=== PATIENT | male | born 1950 | race African-American/Black ===

== ENCOUNTER → 2020-03-29 | Outpatient (CLI) | payer OTHER ==
[~2020-03-29] VITALS: Ht 152.4 cm; Wt 88.0 kg
[~2020-03-29] MED LIST: ALEVE220 M1 PO; ASPIRIN EC81 M1 PO; COSOPT PF EYE1 EACH EA. EYE; CRESTOR10 MG PO; DILTIAZEM 24HR240 M1 PO; DILTIAZEM 24HR240 MG PO; GLIMEPIRIDE1 MG PO; GLUCOPHAGE500 MG PO; HYDROCORTISONE15 G3; KETOCONAZOLE 2%30 GM; LATANOPROST 0.7.5 ML EA. EYE; LEVO-T150 MCG PO; LEVOTHROID175 MCG PO; LISINOPRIL40 MG PO; METFORMIN HCL500 MG PO; OMEGA 3-6-9 CO1 EACH PO; PROAIR HFA8.5 GM INH; SUPER THERAVIT1 EACH PO; TYLENOL EX-STR500 M2 PO; WELCHOL 625 MG625 MG PO; ZESTRIL40 MG PO
[2020-03-29 09:18] VITALS: BP 160/85
--- NOTE | 2020-03-29 09:55 | NUR ---
Pain Clinic Assessment: 1. History of Osteoarthritis: pt denies History of Rheumatoid Arthritis: pt denies 2. Height: 5 ft. 10 in. 152.4 cm. Weight: 194.0 lb. oz. 87.998 kg. Patient's BMI: 37.9 3. Vital Signs: BP: 160/85 Pulse: 70 Resp: 16 Temp: 02 Sat: 100 ECG Mon: 4. Pain Intensity: 8 5. Fall Risk: Dizziness: N Needs help standing or walking: N Fallen in the last 3 months: N Fall risk comments: 6. Patient on Blood Thinner: n 7. History of Hypertension: Y 8. Opioid Therapy greater than 6 weeks: N Opiate Contract Signed: 9. Risk Assessment Tool Provided: 3-low 10. Functional Assessment Tool: 11. Recreational Drug Use: Never Drug Type: Tobacco Use: Former Smoker Tobacco Type: Amount or Packs/day: How Many Years: Alcohol Use: No Frequency: Quant:
--- NOTE | 2020-03-30 11:24 | HPC ---
[facility] [address] [address] PAIN MANAGEMENT CONSULTATION Name: KIMBERLY HOLM Room #: REG Gaston Cheek.#: [id number] Admission: 03/29/20 Attend Phys: Med Gifford DO Discharge: Date of : 48 Report #: [id number] CC: Med Erazo MD DATE OF SERVICE: 03/29/2020 REFERRING PHYSICIAN: Beatris Erazo MD CHIEF COMPLAINT: Low back pain, left lower extremity pain with paresthesias. HISTORY OF PRESENT ILLNESS: As you know, the patient is a pleasant 69-year-old male who reports longstanding history of low back pain and left lower extremity pain with paresthesias. He has in the past undergone epidural injections under fluoroscopic guidance for which he reported good efficacy. He states the first epidural injection gave good improvement in symptoms. He had no concerning issues. The second epidural injection he underwent apparently raised his blood sugars to the 500 level and he passed out at their clinic requiring emergency procedures. He states he awoke after passing out, he was found to have blood sugars elevated over 500 and he received appropriate treatment and symptoms improved. He states the epidural injection was quite beneficial for his pain. The patient states that he has not followed up with any pain services after that as he had been doing fairly well until recently. He discussed his case with his primary care physician, Dr. Erazo about ongoing pain issues. He was referred to our clinic to discuss treatment options. The patient indicates today pain is continuous. He describes the pain as constant, steady, pounding, sharp. Pain is exacerbated with walking and standing, improves with heat and cold compresses, sitting and lying down. He places his current pain score at 8/10 with pain radiating from the back all the way down to the left foot. He has been referred to our service to discuss treatment options. He presents today without imaging studies to review. PAST MEDICAL HISTORY: 1. Poorly controlled diabetes mellitus type 2. 2. Hypertension. 3. Dyslipidemia. 4. Hypothyroidism. 5. Chronic lumbar radiculopathy. 6. Asthma. PAST SURGICAL HISTORY: 1. Meniscal surgery. 2. Prostate surgery. 3. Back surgery. 4. Open reduction and internal fixation of the shoulder. 5. Repeat shoulder surgery. SOCIAL HISTORY: The patient denies tobacco use. Denies IV or illicit drug use. Denies any chronic alcohol use. He is retired, retired years ago. He is not receiving workmen's compensation nor is he trying to obtain discrete benefits. He is not in litigation in regards to pain. He is unaccompanied at today's visit. REVIEW OF SYSTEMS: Positive for wearing corrective eyewear, cataracts, asthma and wheezing, hypertension, dyslipidemia, poorly controlled diabetes, chronic low back pain. All other review of systems negative per 12-point review of systems other than those listed in history of present illness. ALLERGIES: No reported drug allergies. CURRENT MEDICATIONS: Diltiazem ER 240 mg once a day, metformin 500 mg 3 times a day, lisinopril 40 mg per day, levothyroxine 150 mcg per day, Crestor 10 mg once a day, ProAir 1 puff each q. 4 hours p.r.n., ketaconazole cream applied topically to affected area, Glimepiride 1 mg twice a day, latanoprost 1 drop each eye per day, Centrum Silver, multivitamin 1 tab per day, omega-3 fish oil 1 tab per day, aspirin 81 mg per day. PQRS: The patient has known arthritic changes of the lumbar spine, bilateral shoulders and knees. The patient denies any rheumatologic issues and rheumatoid arthritis. He is placing current pain score 8/10. He is not a fall risk, has not had a fall in last 3 months. He is not on blood thinners, but is treated for hypertension. He is not on opioids and has a low opiate addiction potential. Pain impact 42/70, moderate to severe interference of daily activities secondary to pain. PHYSICAL EXAMINATION: VITAL SIGNS: Blood pressure 160/85, pulse 70, respiratory rate 16 and unlabored. The patient is 100% on room air. Height 5 feet 10 inches tall, weight 194 pounds, BMI calculated at 27.8. GENERAL: Well-developed, well-nourished, well-hydrated 69-year-old male appearing stated age, placing current pain score at 8/10. HEENT: Normocephalic, atraumatic. Pupils equal, round and reactive. NEUROLOGIC: Speech is fluent. The patient seems a good historian. LUNGS: The patient is able to complete sentences without complication. He has no auditory wheezing, no cough, no rhonchi. CARDIOVASCULAR: Regular. No gallops, no rubs. ABDOMEN: Soft. EXTREMITIES: Show no clubbing, no cyanosis, no edema. MUSCULOSKELETAL: Lower extremity strength appears equal and symmetrical 5/5. He has slight giveaway strength noted on the left with hip flexion and knee extension versus the right. Seated straight leg raising negative. Supine straight leg raising positive on the left. Pascual's test is negative. Gait mildly antalgic favoring left lower extremity over right. ASSESSMENT: 1. Symptomatic lumbar radiculopathy. 2. Lumbosacral spondylosis with radiculopathy. 3. Chronic intractable pain. PLAN: 1. Based on today's physical exam and history the patient has provided, the description the patient uses in regards to pain as well as location of symptoms, the likely source of the patient's symptoms is a lumbar radiculopathy. We have discussed with the patient the findings of the physical exam and how his symptoms are related to his potential nerve root impingement in the lumbar region. We discussed the treatment options we have available for lumbar radiculopathy today. The following was discussed with the patient. We discussed physical therapy, stretching exercises and traction techniques as a treatment course. We discussed medication management with suggestions of treatment to include amitriptyline, nortriptyline, Cymbalta, Lyrica, and gabapentin. We discussed the potential addition of nonsteroidal anti-inflammatories on a consistent basis. We discussed with the patient epidural injection under fluoroscopic guidance for which he was referred to our clinic. We also discussed surgical options with the patient, which would include either a spinal cord stimulator or traditional surgical approach. After reviewing risks and benefits of all proposed treatment options, the patient chose to move forward with a lumbar epidural injection. 2. The patient reports that he had had elevated blood sugars this morning up to 300, which is atypical for him. We would recommend that he gain better control of his blood sugars before he undergoes an epidural injection. The patient states that in the past he had an epidural injection, which led to an elevated blood sugar level causing him to pass out at their clinic. We recommend that he can gain better control of his blood sugar before we undergo the injection. I have advised the patient to check his blood sugar tomorrow, if it is in his normal range, we would be more than willing to provide him an injection, but given his elevated level today, I do not feel it is appropriate given his history. The patient is agreeable. He will contact our clinic tomorrow with blood sugar levels, if they are better control, I will have him come in and undergo the procedure. If not controlled, we will then schedule the patient back after he has a chance to follow up with his PCP to make adjustments in medication to address this issue. 3. No medication changes made at today's visit. The patient will continue current medical therapy as prior prescribed. 4. We plan to see the patient back in followup visit once he has better control of blood sugar to undergo a lumbar epidural injection under fluoroscopic guidance to address lumbar radicular pain per the request of his referring physician. 5. We wish to thank Dr. Erazo for the opportunity to see the patient in consultation. We will keep you apprised of response to treatment as we address suspected lumbar radiculopathy. Again, we wish to thank you for the opportunity to see the patient in consultation. <ELECTRONICALLY SIGNED> By: Med Gifford DO 03/30/20 [id number] Med Gifford DO /nt
== END ==
LOC: PAIN 06:52
PROVIDERS: ATTEND Anesthesiology Pain Medicine
DX: M47.27 Other spondylosis with radiculopathy, lumbosacral region (principal); M79.605 Pain in left leg; R20.2 Paresthesia of skin; G89.29 Other chronic pain; I10 Essential (primary) hypertension; E03.9 Hypothyroidism, unspecified; J45.909 Unspecified asthma, uncomplicated; Z79.899 Other long term (current) drug therapy

== ENCOUNTER → 2020-03-30 | Outpatient (CLI) | payer OTHER ==
[~2020-03-30] VITALS: Ht 177.8 cm; Wt 84.4 kg
--- NOTE | ~2020-03-30 | HPC ---
[address] [address] PAIN MANAGEMENT CONSULTATION Name: KIMBERLY HOLM [id number] Admission: 03/30/20 Attend Phys: Med Gifford DO Discharge: Date of : 48 Report #: [id number] CC: Med rEazo DATE OF SERVICE: 03/30/2020 CHIEF COMPLAINT: Low back pain, left lower extremity pain with paresthesias. HISTORY OF PRESENT ILLNESS: As you know, the patient is a very pleasant 69-year-old male who has returned today in followup visit to undergo lumbar epidural injection under fluoroscopic guidance. We saw the patient yesterday where his blood sugar was 300. We advised the patient to get better control of his blood sugars before he undergoes epidural injection. He is now with a blood glucose level of 81 upon arrival in our clinic today. He returns for the first in the series of lumbar epidural injections to address lumbar radiculopathy per the request of his primary care physician, Dr. Beatris Erazo. The patient is reporting pain today at 4/10. He was at as high as 8/10 yesterday, but did take some Aleve per our suggestion which improved his pain by 50%. He returns today for a lumbar epidural injection under fluoroscopic guidance. ALLERGIES: No reported drug allergies. CURRENT MEDICATIONS: Diltiazem ER, metformin, lisinopril, levothyroxine, Crestor, ProAir, glimepiride, latanoprost, Centrum Silver, omega-3 fish oil, aspirin. SOCIAL HISTORY: The patient denies tobacco use. Denies IV or illicit drug use. Denies any chronic alcohol use. He is retired, retired years ago, unaccompanied today. IMAGING: There is no new imaging available. PHYSICAL EXAMINATION: VITAL SIGNS: Blood pressure 179/93, pulse 70, respiratory rate 16 and unlabored, the patient is 99% on room air. Height 5 feet 10 inches tall, weight 186 pounds, BMI calculated 26.7. GENERAL: Well-developed, well-nourished, well-hydrated 69-year-old male appearing stated age, pain is rated today 4/10. HEENT: Normocephalic, atraumatic. Pupils equal, round and reactive. Extraocular muscles are intact. Speech fluent. EXTREMITIES: Show no clubbing, no cyanosis. No appreciable edema. MUSCULOSKELETAL: Lower extremity strength remains symmetrical again today, 5/5. Giveaway strength noted with hip flexion, knee extension on the left. Seated straight leg raising remains negative. Supine straight leg raising is positive on the left at about 60-degree angle. Ankle clonus negative. ASSESSMENT: 1. Symptomatic lumbar radiculopathy. 2. Lumbosacral spondylosis with radiculopathy. 3. Chronic intractable pain. PLAN: 1. The patient returns today in followup visit having a much better blood sugar level of 81 prior to today's visit. He has been consented and will undergo a lumbar epidural injection under fluoroscopic guidance to address lumbar radiculopathy. The patient was advised that the steroids provided in today's injection will likely increase his blood sugar levels. If he has any questions or concerns, contact his PCP in regards to possible changes in his medications over the next couple of days as the steroid takes effect. Typically, we do not make any adjustments in oral hypoglycemic medications. We typically allow the blood sugars to rise and then subsequently decrease which is standard for steroid exposures. 2. The patient was advised risks and benefits of a lumbar epidural injection. These risks include but are not necessarily limited to bleeding, bruising, infection, worsening pain, no relief of pain, also risk of temporary or permanent weakness, temporary or permanent nerve damage, possible paralysis, post-dural puncture headache, increased blood sugars and . The patient states understood and wished to proceed. 3. No medication changes made at today's visit. The patient will continue current medical therapy as prior prescribed. 4. We will see the patient back in followup visit on an as needed basis for possible next in the series of epidural injections. We did set the patient a tentative appointment in 28 days. If he is doing well at that time, he can cancel this appointment. We are hopeful the patient will see good and prolonged benefit and be able to receive excellent long-term treatment for his lumbar radicular symptoms with this injection. PROCEDURE NOTE DESCRIPTION OF PROCEDURE: L5-S1 left paramedian epidural steroid injection under fluoroscopic guidance. This is the first procedure of the first series that the patient is undergoing. After obtaining written consent, the patient was taken back to the fluoroscopy suite, placed in a prone position with pillow under the abdomen to decrease lumbar lordosis. The skin overlying the lumbosacral area was then prepped and draped in aseptic fashion. The L5-S1 vertebral interspace was then identified by AP fluoroscopy. The skin and subcutaneous tissue overlying the target site of injection was anesthetized with 3 mL 1% lidocaine. A 20-gauge 3-1/2 inch Tuohy needle was then advanced under fluoroscopic guidance towards the epidural space using a left paramedian approach. The epidural space was identified using loss of resistance to air technique. After negative aspiration for heme or cerebrospinal fluid, a total of 1 mL of Omnipaque was injected. A lumbar epidurogram was confirmed using both AP and lateral fluoroscopy. After negative aspiration for heme or cerebrospinal fluid, 5 mL of a solution containing 2 mL 40 mg per mL, 80 mg total triamcinolone along with 3 mL of lidocaine 1% was injected in increments. Contrast spread was noted posterior epidural space. The needle was then retracted approximately half way and needle tract flushed with 1 mL of 1% lidocaine. Needle was then removed. There were no apparent sensory or motor deficits in the lower extremity following the procedure. A sterile bandage was placed over the injection site. The heart rate, pulse, oximetry and blood pressure were continuously monitored after the procedure. There were no apparent complications. The patient tolerated the procedure well and was carefully escorted to the recovery room in stable condition. There were no apparent complications. After meeting discharge criteria, the patient was then discharged home. By: [id number] Med Gifford DO /aline
[2020-03-30 12:39] VITALS: BP 179/93
--- NOTE | 2020-03-30 12:45 | NUR ---
Pain Clinic Assessment: 1. History of Osteoarthritis: right knee History of Rheumatoid Arthritis: pt denies 2. Height: 5 ft. 10 in. 177.8 cm. Weight: 186.0 lb. oz. 84.369 kg. Patient's BMI: 36.3 3. Vital Signs: BP: 179/93 Pulse: 70 Resp: 16 Temp: 02 Sat: 99 ECG Mon: 4. Pain Intensity: 4 5. Fall Risk: Dizziness: Needs help standing or walking: Fallen in the last 3 months: Fall risk comments: 6. Patient on Blood Thinner: n 7. History of Hypertension: Y 8. Opioid Therapy greater than 6 weeks: N Opiate Contract Signed: 9. Risk Assessment Tool Provided: 3-low 10. Functional Assessment Tool: 11. Recreational Drug Use: Never Drug Type: Tobacco Use: Former Smoker Tobacco Type: Amount or Packs/day: How Many Years: Alcohol Use: No Frequency: Quant:
== END | disposition home or self-care (01) ==
LOC: PAIN 06:53
PROVIDERS: ATTEND Anesthesiology Pain Medicine
DX: M47.27 Other spondylosis with radiculopathy, lumbosacral region (principal); G89.29 Other chronic pain; Z98.890 Other specified postprocedural states; Z79.899 Other long term (current) drug therapy; Z87.891 Personal history of nicotine dependence